=== PATIENT | female | born 1990 | race Hispanic/Latino ===

== ENCOUNTER 2018-08-25 06:47 | Outpatient (CLI) | payer OTHER ==
--- NOTE | 2018-08-25 09:43 | ULT ---
COMPLETE ULTRASOUND GREATER THAN 14 WEEKS: HISTORY: A 27-year-old female with a history of size and dates and anatomy. FINDINGS: Single viable intrauterine fetus is noted in breech presentation. Placenta is fundal. The baby is f jimmy down. heart rate 155 b.p.m. Cervical length approximates 4.5 cm. Amniotic fluid is withi n normal limits. Anatomy: Visualized brain, 4-chamber heart, 3-vessel cord, stomach, bladder, kidneys, spine, and extremi ty regions are unremarkable as visualized. The lips and nose were not adequately seen because of position. Biometry: BPD 4.5 cm - 19 weeks 5 days Head circumference 18.3 cm - 20 weeks 5 days Abdominal circumference 16.6 cm - 21 weeks 5 days Femur length 3.2 cm - 20 weeks 1 day IMPRESSION: Single viable intrauterine fetus in breech presentation. Gestational age average 20 weeks 4 days. E stimated date of delivery of 01/08/2019. weight 381 gm. POS: [facility]
== END 2018-08-25 06:48 | disposition home or self-care (01) ==
LOC: BICULT 06:47
PROVIDERS: ATTEND Family Medicine
DX: O09.892 Supervision of other high risk pregnancies, second trimester (principal); O32.1XX0 Maternal care for breech presentation, not applicable or unspecified; Z3A.20 20 weeks gestation of pregnancy
CPT/HCPCS: 76805

== ENCOUNTER 2018-12-29 00:15 | Inpatient (IN) | payer MEDICAID, OTHER, SELFPAY ==
[2018-12-29] MEDS ORDERED: Lidocaine 1% (PF) 30 ML VIAL SC PRN (19:19)
[2018-12-29] MEDS ORDERED: HYDROcodone/Acetaminophen 5/325 mg Tablet PO PRN (19:19)
[2018-12-29] MEDS ORDERED: Ibuprofen 800 MG TAB PO PRN (19:19)
[2018-12-29] MEDS ORDERED: NS / Oxytocin 40 units/1000ml 1,000 ML IV PRN (19:19)
[2018-12-29] MEDS ORDERED: Lactated Ringer's 1,000 ML IV SCH (19:19)
[2018-12-29] MEDS ORDERED: Misoprostol 200 MCG TAB PR PRN (19:19)
[2018-12-29] MEDS ORDERED: Diphenoxylate HCl/Atropine Tablet PO PRN (19:19)
[2018-12-29] MEDS ORDERED: Promethazine HCl 25 MG/ML VIAL IM PRN ×2 (19:19→21:05)
[2018-12-29] MEDS ORDERED: Carboprost 250 MCG/ML AMP IM PRN (19:19)
[2018-12-29] MEDS ORDERED: NS w/ Oxytocin 10 units 500 ML IV SCH ×2 (19:19)
[2018-12-29] MEDS ORDERED: Butorphanol Tartrate 1 MG/ML VIAL SLOW IVP PRN (19:19)
[2018-12-29] MEDS ORDERED: Methylergonovine 0.2 MG/ML VIAL IM PRN (19:19)
[2018-12-29] MEDS ORDERED: Ondansetron PF 4 MG/2 ML Vial IVP PRN ×2 (19:19→21:05)
[2018-12-29 19:33] LABS: Hemoglobin 13.4 g/dL (12.0-16.0); Mean Corpuscular HGB CONC 32.9 g/dL (32.0-36.0); Mean Corpuscular Hemoglobin 27.7 pg (27.0-31.0); Mean Platelet Volume 7.3 fL (7.4-10.4); Platelet Count 331 thou/uL (130-400); RBC Distribution Width 12.2 % (11.5-14.5); Red Blood Cell (RBC) Count 4.86 mill/uL (4.20-5.40); White Blood Cell (WBC) Count 11.8 thou/uL (4.8-10.8)
[2018-12-29 20:08] VITALS: BMI 42.0
[2018-12-29 20:10] LABS: Syphilis Antibody Nonreactive (Nonreactive); Syphilis Antibody Index 0.04 S/CO (<1.00 Non-Reactive)
[2018-12-29 20:11] LABS: HBSAg Index 0.21 S/CO (0-0.99); Hep B Surf Ag Non-Reactive S/CO (NonReactive)
[2018-12-29] MEDS ORDERED: Fentanyl 4 mcg/Bup 0.1% Cadd 100 ML ONE (20:23)
[2018-12-29] MEDS: Misoprostol 100 MCG TAB VAG SCH (20:47)
[2018-12-29] MEDS ORDERED: Lidocaine 1.5%/Epinephrine 1:200,000 5 ML AMPUL IJ ONE (20:50)
[2018-12-29] MEDS ORDERED: Lactated Ringer's 500 ML IV PRN (21:05)
[2018-12-29] MEDS ORDERED: Acetaminophen 325 MG TAB PO PRN (21:05)
[2018-12-29] MEDS ORDERED: ePHEDrine/0.9% NaCl/PF SYRINGE 50 mg/10 ml SLOW IVP PRN (21:05)
[2018-12-29] MEDS ORDERED: diphenhydrAMINE 50 MG/ML VIAL IVP PRN (21:05)
[2018-12-29] MEDS ORDERED: Naloxone HCl 0.4 mg/ml Vial IVP PRN ×2 (21:05)
[2018-12-29] MEDS ORDERED: Hydrocerin (Eucerin) Cream 120 gm Jar TOP PRN (21:05)
[2018-12-29] MEDS ORDERED: Communication Order-Pharmacy FS SCH (21:15)
[2018-12-29] MEDS ORDERED: Fentanyl 4 mcg/Bupivacaine 0.1% Cassette 100 ML EPIDURAL SCH (21:15)
[2018-12-30] MEDS: Misoprostol 100 MCG TAB VAG SCH (01:58)
[2018-12-30] MEDS ORDERED: Bisacodyl 10 MG SUPP PR PRN (02:25)
[2018-12-30] MEDS ORDERED: Ondansetron PF 4 MG/2 ML Vial IVP PRN (02:25)
[2018-12-30] MEDS ORDERED: HYDROcodone/Acetaminophen 5/325 mg Tablet PO PRN ×2 (02:25)
[2018-12-30] MEDS ORDERED: NS / Oxytocin 40 units/1000ml 1,000 ML IV SCH (02:25)
[2018-12-30] MEDS ORDERED: Lanolin Ointment 7 GM TUBE TOP PRN (02:25)
[2018-12-30] MEDS ORDERED: diphenhydrAMINE 25 MG CAP PO PRN (02:25)
[2018-12-30] MEDS ORDERED: Benzocaine/Menthol 20-0.5% 60 ML CAN TOP PRN (02:25)
[2018-12-30] MEDS ORDERED: Milk Of Magnesia 30 ML UDCUP PO PRN (02:25)
[2018-12-30 05:44] LABS: Hemoglobin 11.7 g/dL (12.0-16.0); Mean Corpuscular HGB CONC 33.1 g/dL (32.0-36.0); Mean Corpuscular Volume 84.7 fL (78.0-98.0); Mean Platelet Volume 7.2 fL (7.4-10.4); Platelet Count 246 thou/uL (130-400); Red Blood Cell (RBC) Count 4.16 mill/uL (4.20-5.40); White Blood Cell (WBC) Count 15.9 thou/uL (4.8-10.8)
[2018-12-30] MEDS: Ibuprofen 800 MG TAB PO SCH ×3 (08:07→21:49)
[2018-12-30] MEDS: Prenatal Vitamin 1 TAB PO SCH (08:07)
[2018-12-30] MEDS ORDERED: Adacel (T-DAP) 0.5 ML SYRINGE IM ONE (09:00)
[2018-12-30] MEDS: Ferrous Sulfate 325 MG TAB PO SCH ×2 (12:51→14:21)
[2018-12-30] MEDS: Docusate Calcium (SURFAK) 240 MG CAP PO SCH ×2 (12:52→21:49)
[2018-12-31] MEDS: Ibuprofen 800 MG TAB PO SCH (06:45)
[2018-12-31 07:42] VITALS: BP 82/50; TEMP 98.3
[2018-12-31] MEDS: Prenatal Vitamin 1 TAB PO SCH (09:04)
[2018-12-31] MEDS: Docusate Calcium (SURFAK) 240 MG CAP PO SCH (09:04)
[2018-12-31] MEDS: Ferrous Sulfate 325 MG TAB PO SCH (09:04)
== END 2018-12-31 14:15 | disposition home or self-care (01) | DRG 807 ==
LOC: L&D 18:44 → 3SW 12-30 12:18
PROVIDERS: ADMIT Family Medicine; ATTEND Family Medicine
PROC: 10E0XZZ Delivery of Products of Conception, External Approach (ICD-10-PCS; principal; 2018-12-29)
DX: O76 Abnormality in fetal heart rate and rhythm complicating labor and delivery (principal); Z37.0 Single live birth; Z3A.39 39 weeks gestation of pregnancy; O70.0 First degree perineal laceration during delivery; O69.81X0 Labor and delivery complicated by cord around neck, without compression, not applicable or unspecified
CPT/HCPCS: 36415; 51702; 85027; 86780; 86850; 86900; 86901; 87340; J3490